=== PATIENT | male | born 1995 ===

== ENCOUNTER 2020-09-03 16:35 | Outpatient (CLI) | payer OTHER ==
[2020-09-03 19:24] LABS: SARS-CoV-2 NAA Rapid Test Not Detected (NotDetected)
== END 2020-09-03 16:36 | disposition home or self-care (01) ==
LOC: NAV LABSP 16:35
PROVIDERS: ATTEND Family Medicine
DX: Z20.822 Contact with and (suspected) exposure to COVID-19 (principal)
CPT/HCPCS: 0240U